=== PATIENT | female | born 1955 | race Two or more races ===

== ENCOUNTER 2024-09-07 11:48 | Inpatient (IN) | payer OTHER, MEDICAID ==
[~2024-09-07] VITALS: Ht 154.9 cm; Wt 85.4 kg
[~2024-09-07 11:48] MED LIST: BUDE1AER4 IN; BUSP5TAB51 PO; DULO60CA41 PO; FLUC150T47 PO; GABA-1308 PO; GLIP10TA21 PO; HYDR-4798 PO; IMMU1INJ IJ; INSUINJ37 SC; LEVO500T91 PO; LORA-622 PO; METF-372 PO; OSEL75CA5 PO
--- NOTE | 2024-09-07 12:10 | ED.PDOC ---
SOB-HPI HPI Comments PMHx: DM, HTN, HLD, COPD, thyroid, RA, pancreatitis PSHx: Denies. Social hx: No alcohol, illicit drug, or tobacco use. Meds: Metformin, Glipizide, Losartan, Vit. D Allergies: NKDA. Vitals T: 98.0F RR: 20 HR: 127 BP: 158/50 O2: 96% on RA HPI: Poor Historian. 69-year-old female presents to the emergency department for evaluation of two day history of shortness of breath and associated midsternal chest discomfort with deep inspiration. Patient has some minimal epigastric discomfort as well. Patient denies any alleviating or precipitating factors. History of COPD. Patient does not use oxygen at home. REVIEW OF SYSTEMS: CONSTITUTIONAL: Denies acute: fever, diaphoresis, chills, generalized weakness. HEAD: Denies acute: headache, photophobia Eyes: Denies acute: Double vision, vision loss, eye pain, eye discharge. EARS: Denies acute: tinnitus, hearing loss, ear discharge, ear pain, THROAT: Denies acute: sore throat, swelling, difficulty swallowing , pain with swallowing, change in voice. NECK: Denies acute: neck pain, neck swelling, stiff neck. HEART: Denies acute : palpitations, LUNGS: Denies acute: wheezing, cough, hemoptysis ABDOMEN: Denies acute: Nausea, Vomiting, diarrhea, melena , hematemesis, hematochezia SKIN: Denies acute: rash, redness, lesions, itchiness. EXTREMITIES: Denies acute: calf pain, numbness, tingling, weakness, denies pain in extremity. Denies acute: Low back pain. Neuro: Denies acute: focal neurological deficit, motor or sensory focal neurological deficit, tremors, seizure like activity, confusion, dizziness, change in mental status, loss of bowel or bladder function, cauda equina like symptoms. : Denies acute: dysuria, hematuria, flank pain, increase in urinary frequency. PSYCH: Denies acute: hallucination, suicidal ideation, homicidal ideation. FEMALE: Denies acute: abnormal vaginal bleeding, foul odor, unusual discharge. PHYSICAL EXAM: General: Moderate acute distress, awake and alert. Head: normocephalic, atraumatic. Neck: supple, trachea is midline, no swelling. Throat: Normal phonation. Eyes:, no erythema, no purulent discharge, no proptosis, no icterus. Heart: regular tachycardic, no significant murmur appreciated. Lungs: mild apparent respiratory distress, No wheezing, no rhonchi, no crackles. No stridors Clear to auscultation bilaterally. Abdomen: Minimal epigastric tender to palpation, non distended, soft, no guarding, no rebound, + bowel sounds. Neuro: Awake, Alert, oriented to name, self, situation, follows commands GCS=15. Speech is normal. Skin: no petechia, no purpura, no cyanosis, non-pale, not jaundice. Lower extremities: --no - Pitting edema no deformity, no focal swelling, no calf TTP. Makes eye contact. moves all four extremities. Face: no apparent facial droop. Ambulating in the ED independently. Time Seen by MD: 11:50 Reviewed notes: Nurses Notes, Medications, Allergies Information Source: Patient Mode of Arrival: Ambulatory Severity: Moderate Timing: Days Duration: Since onset Context: At Rest PE Risk Factors: None History of: COPD Modifying Factors: Nothing Associated Signs and Symptoms: Chest Pain Quality: Sharp Radiation: No Radiation Past Medical History PAST MEDICAL HISTORY: Arthritis, COPD, DM, High Lipids, HTN, Thyroid Past Medical History (Other): Pancreatitis Surgical History: Denies all surgeries STAFF PHYSICAL THERAPIST History: No Pertinent STAFF PHYSICAL THERAPIST History Family History Family History: Reviewed,noncontributory to illness, Unknown Social History Smoker: Non-Smoker Alcohol: Denies ETOH Use Drugs: Denies Drug Use Lives In: Home Was a procedure done? Was a procedure done?: No Differential Dx Differential Diagnosis: COPD, Pneumonia, Other (DDx include ACS, unstable angina, anxiety, PE, pneumothroax, neoplasm, cardiac ischemia, COPD, asthma, C HF, pleural effusion, tobacco abuse, pneumonia, hypoxia, hypercapnia, anemia., infection/sepsis., pulmonary edema. Asthma, Cardiac tamponade, infection.) X-Ray, Labs, Meds, VS Vital Signs Date Time Temp Pulse Resp B/P (MAP) Pulse Ox O2 Delivery O2 Flow Rate FiO2 09/07/24 13:13 123 09/07/24 12:21 98.0 127 20 158/50 (86) 96 09/07/24 12:16 121 Lab Test 09/07/24 13:41 11/25/24 12:48 Range/Units Troponin I High Sensitivity 25 24 </=34 ng/L White Blood Count 12.2 H 4.4-10.8 10^3/uL Red Blood Count 5.53 H 4.0-5.20 10^6/uL Hemoglobin 10.3 L 12.2-16.2 g/dL Hematocrit 34.1 L 36.0-46.0 % Mean Corpuscular Volume 61.7 L 80.0-100.0 fL Mean Corpuscular Hemoglobin 18.7 L 28.0-32.0 pg Mean Corpuscular Hemoglobin Concent 30.2 L 32.0-36.0 g/dL Red Cell Distribution Width 19.2 H 11.8-14.3 % Platelet Count 347 140-450 10^3/uL Mean Platelet Volume 8.5 6.9-10.8 fL Neutrophils (%) (Auto) 82.7 H 37.0-80.0 % Lymphocytes (%) (Auto) 10.2 10.0-50.0 % Monocytes (%) (Auto) 6.1 0.0-12.0 % Eosinophils (%) (Auto) 0.6 0.0-7.0 % Basophils (%) (Auto) 0.4 0.0-2.0 % Neutrophils # (Auto) 10.1 H 1.6-8.6 10 ^3/uL Lymphocytes # (Auto) 1.2 0.4-5.4 10 ^3/uL Monocytes # (Auto) 0.7 0-1.3 10 ^3/uL Eosinophils # (Auto) 0.1 0-0.8 10 ^3/uL Basophils # (Auto) 0 0-0.2 10 ^3/uL Nucleated Red Blood Cells 0.1 % Prothrombin Time 10.9 9.3-11.8 sec Prothrombin Time INR 1.03 0.9-1.15 Activated Partial Thromboplast Time 24.8 24.5-34.5 SEC D-Dimer, Quantitative 0.54 H 0.0-0.49 mg/L FEU Sodium Level 138 136-145 mmol/L Potassium Level 4.4 3.5-5.1 mmol/L Chloride Level 101 98-107 mmol/L Carbon Dioxide Level 25 20-31 mmol/L Anion Gap 12 5-15 Blood Urea Nitrogen 19 9-23 mg/dL Creatinine 1.05 H 0.550-1.02 mg/dL Glomerular Filtration Rate Calc 58 >90 mL/min BUN/Creatinine Ratio 18.1 10.0-20.0 Serum Glucose 350 H 74-106 mg/dL Lactic Acid Level 3.9 *H 0.4-2.0 mmol/L Calcium Level 10.5 H 8.7-10.4 mg/dL Magnesium Level 1.9 1.6-2.6 mg/dL Total Bilirubin 0.5 0.2-1.0 mg/dL Aspartate Amino Transferase (AST) 36 13-40 U/L Alanine Aminotransferase (ALT) 47 H 7-40 U/L Alkaline Phosphatase 135 H 46-116 U/L B-Type Natriuretic Peptide 25.63 0-100 pg/mL Total Protein 7.1 5.7-8.2 g/dL Albumin 4.7 3.2-4.8 g/dL Lipase 25 12-53 U/L [place] [address] Ph: [phone] DIAGNOSTIC IMAGING Diagnostic Imaging Report : [id number] Signed PATIENT: DELORES KLEIN ACCT: [id number] UNIT: [id number] : 1955 LOC: ER ROOM / BED: / AGE / SEX: 69 / F ADM STATUS: REG ER SERVICE ORDERING PHYSICIAN: ALVARO ABEL DO PROCEDURE(s): CXRP - CHEST PORTABLE REASON: CP ORDER NUMBER(s): [id number], ACCESSION NUMBER(s): [id number] AP portable chest REASON FOR EXAM: CP INDICATION: CP FINDINGS: Heart size is normal. Aorta tortuous. There are no infiltrates or effusions. Degenerative changes in the thoracic spine. IMPRESSION: 1. No acute cardiopulmonary pathology. ATED BY: KANE PATHAK MD DICTATED DATE/TIME: 09/07/24 130 SIGNED BY: KANE PATHAK MD SIGNED DATE/TIME: 09/07/24 1301 CC: [address] [address] Ph: [phone] DIAGNOSTIC IMAGING Diagnostic Imaging Report : [id number] Signed PATIENT: DELORES KLEIN ACCT: [id number] UNIT: [id number] : 1955 LOC: OVERFLOW ROOM / BED: 1029-ER / A AGE / SEX: 69 / F ADM STATUS: ADM IN SERVICE 1352 ORDERING PHYSICIAN: ALVARO ABEL DO PROCEDURE(s): CTACH - CT ANGIO CHEST CONTRAST REASON: sob/cp ORDER NUMBER(s): [id number], ACCESSION NUMBER(s): [id number] INDICATION: sob/cp Comparison: None TECHNIQUE: Multidetector CTA of the chest was performed of the chest with 100 cc of intravenous contrast. PULMONARY ANGIOGRAPHY PROTOCOL was utilized using a bolus-tracking technique centered on the main pulmonary artery. Axial, coronal a nd sagittal multiplanar and MIP reformats were performed. Radiation Dose Information: CT Dose: CTDI volume is 5.92 mGy. Dose-length product is 947.73 mGy*cm Omnipaque [address] dose indicators for CT are the volume Computed Tomography (CT) Dose Index (CTDIvol) and the Dose Length Product (DLP), and are measured in units of mGy and mGy-cm, respectively. These indicators are not patient dose, but values generated from the CT scanner acquisition factors. The report includes radiation exposure data for exposures received during this examination. Findings: Pulmonary artery: Normal caliber of the pulmonary artery. No large central or large segmental pulmonary embolism. Lower neck: Normal thyroid. Lungs: No focal consolidation, pulmonary mass, or suspicious pulmonary nodule. Heart/Vascular Structures: Normal heart size. Normal caliber and enhancement of the aorta. Lymph Nodes: No adenopathy Pleura: No pleural effusion or significant pneumothorax. Musculoskeletal: No acute osseous abnormality. Upper abdomen: Limited portions of the upper abdomen are unremarkable. IMPRESSION: 1. No pulmonary embolism. 2. No acute intrathoracic abnormality. ATED BY: KANE MORENO Jr., DO DICTATED DATE/TIME: 09/07/241927 SIGNED BY: KANE MORENO Jr., DO SIGNED DATE/TIME: 09/07/241927 CC: Time of 1ST Reevaluation: 12:35 Reevaluation 1ST: Unchanged Time of 2ND Reevaluation: 21:48 Reevaluation 2ND: Improved Patient Education/Counseling: Diagnosis, Treatment Family Education/Counseling: No Family Present Comments Patient presented with the above HPI.--cardiac----workup was initiated. patient was found with the above mentioned diagnosis. Patient was given: Patient ED course and VS have been stabilized. Patient has been reassessed in the ED and remained in a stable condition. Pertinent incidental findings were discussed with the patient and/or family. Patient/family voices understanding and is agreeable with plan. Patient has been observed in the ED adequate length of time to insure improvement/stability. patient was admitted to the medicine team for further evaluation and treatment of their presentation. All the reports of any imaging studies that were ordered by myself were reviewed by myself. Departure 1 Departure Time of Disposition: 12:54 Impression: Primary Impression: Chest pain of unknown etiology Additional Impressions: Dyspnea Tachycardia Disposition: ADMITTED INPATIENT Admit to: Tele Condition: Guarded Discharged With: Self Critical Care Note Critical Care Time?: Yes (45 min-critical care time only) Heart Score Heart Score: Heart Score Response (Comments) Value History Moderate Suspicious 1 EKG Normal 0 Age >65 2 Risk Factors 1 or 2 risk factors 1 Troponin Normal limit 0 Total 4 I personally scribed for ALVARO ABEL DO ([email or web address]) on 09/07/24 at 12:10. Electronically submitted by Yvonne Quesada ([employer]). I personally scribed for ALVARO ABEL DO (DVFARMI) on 09/07/24 at 12:11. Electronically submitted by Yvonne Quesada ([employer]). I personally scribed for ALVARO ABEL DO (DVFARMI) on 09/07/24 at 12:19. Electronically submitted by Yvonne Quesada ([employer]). I personally scribed for ALVARO ABEL DO ([email or web address]) on 09/07/24 at 13:43. Electronically submitted by Yvonne Quesada ([employer]). I personally scribed for ALVARO ABEL DO ([email or web address]) on 09/07/24 at 20:19. Electronically submitted by Yvonne Quesada ([employer]). ALVARO ABEL DO Sep 07, 2024 12:10
--- NOTE | 2024-09-07 13:03 | DVH ---
AP portable chest REASON FOR EXAM: CP INDICATION: CP FINDINGS: Heart size is normal. Aorta tortuous. There are no infiltrates or effusions. Degenerative changes in the thoracic spine. IMPRESSION: 1. No acute cardiopulmonary pathology.
[2024-09-07 13:25] LABS: Eosinophils # (auto) 0.1 10 ^3/uL (0-0.8); Eosinophils % (auto) 0.6 % (0.0-7.0); Hemoglobin 10.3 g/dL (12.2-16.2); Lymphocytes # (auto) 1.2 10 ^3/uL (0.4-5.4); Neutrophils # (auto) 10.1 10 ^3/uL (1.6-8.6); Nucleated Red Blood Cells % 0.1 %
[2024-09-07 13:26] LABS: Basophils # (auto) 0 10 ^3/uL (0-0.2); Basophils % (auto) 0.4 % (0.0-2.0); Hematocrit 34.1 % (36.0-46.0); Lymphocytes % (auto) 10.2 % (10.0-50.0); Mean Corpuscular Hemoglobin 18.7 pg (28.0-32.0); Mean Corpuscular Hgb Conc. 30.2 g/dL (32.0-36.0); Mean Corpuscular Volume 61.7 fL (80.0-100.0); Monocytes # (auto) 0.7 10 ^3/uL (0-1.3); Monocytes % (auto) 6.1 % (0.0-12.0); Neutrophils % (auto) 82.7 % (37.0-80.0); Platelet Count (auto) 347 10^3/uL (140-450); Red Blood Cells 5.53 10^6/uL (4.0-5.20); Red Cell Distribution Width 19.2 % (11.8-14.3); White Blood Cell 12.2 10^3/uL (4.4-10.8)
[2024-09-07 13:29] LABS: INR 1.03 (0.9-1.15); Partial Thromboplastin Time 24.8 SEC (24.5-34.5); Prothrombin Time 10.9 sec (9.3-11.8)
[2024-09-07 13:31] LABS: Alanine Aminotransferase 47 U/L (7-40); Albumin 4.7 g/dL (3.2-4.8); Alkaline Phosphatase 135 U/L (46-116); Anion Gap 12 (5-15); Aspartate Aminotransferase 36 U/L (13-40); BUN/Creatinine Ratio 18.1 (10.0-20.0); Blood Urea Nitrogen 19 mg/dL (9-23); Calcium 10.5 mg/dL (8.7-10.4); Carbon Dioxide 25 mmol/L (20-31); Chloride 101 mmol/L (98-107); Glucose 350 mg/dL (74-106); Lipase 25 U/L (12-53); Magnesium 1.9 mg/dL (1.6-2.6); Potassium 4.4 mmol/L (3.5-5.1); Sodium 138 mmol/L (136-145)
[2024-09-07 13:32] LABS: Bilirubin, Total 0.5 mg/dL (0.2-1.0); Total Protein 7.1 g/dL (5.7-8.2)
[2024-09-07 13:36] LABS: Lactic Acid w/Reflex 3.9 mmol/L (0.4-2.0)
[2024-09-07] MEDS ORDERED: ONDANSETRON HCL 4 MG/2 ML VIAL IV PRN (14:45)
[2024-09-07] MEDS ORDERED: LORazepam 0.5 MG TAB PO PRN (14:45)
[2024-09-07] MEDS ORDERED: DEXTROSE (50%) 50ML SYRG IV PRN (14:45)
[2024-09-07] MEDS ORDERED: DOCUSATE SOD 100 MG CAP PO PRN (14:45)
[2024-09-07] MEDS ORDERED: ACETAMINOPHEN 325 MG TAB PO PRN (14:45)
[2024-09-07] MEDS ORDERED: MAALOX PLUS or MAALOX 30 ML PO PRN (14:45)
--- NOTE | 2024-09-07 14:52 | DVHHP2 ---
History of Present Illness Reason for Visit: Shortness of stress History of Present Illness 69-year-old morbidly obese patient comes to the ED with complaints of shortness of breath patient has a past medical history of diabetes hypertension hyperlipidemia COPD and thyroid disorder patient on initial evaluation in the ED had a chest x-ray did not show acute signs of fluid overload but possible acute on chronic COPD exacerbation with respiratory distress patient was suggested for admission to the hospital for further evaluation and continued management Cardiovascular: CAD, HTN Pulmonary: COPD Endocrine: Diabetes Review of Systems Constitutional: No: Fever, Chills, Sweats, Weakness, Malaise, Other Eyes: No: Pain, Vision change, Conjunctivae inflammation, Eyelid inflammation, Other, Redness ENT: No: Ear pain, Ear discharge, Nose pain, Nose discharge, Nose congestion, Mouth pain, Mouth swelling, Throat pain, Throat swelling, Other Respiratory: Cough, Shortness of breath, SOB with excertion; No: Dry, Wheezing, Hemoptysis, Pleuritic Pain, Sputum, Wheezing, Other Cardiovascular: Chest Pain, Palpitations; No: Orthopnea, Paroxysmal Noc. Dyspnea, Edema, Lt Headedness, Other Gastrointestinal: No: Nausea, Vomiting, Abdominal Pain, Diarrhea, Constipation, Melena, Hematochezia, Other Genitourinary: No Dysuria, No Frequency, No Incontinence, No Hematuria, No Retention, No Other Musculoskeletal: No: other, neck pain, shoulder pain, arm pain, back pain, hand pain, leg pain, foot pain Skin: No: Rash, Lesions, Jaundice, Bruising, Other Neurological: No: Weakness, Numbness, Incoordination, Change in speech, Conf usion, Seizures, Other Allergies: Coded Allergies: NO KNOWN ALLERGIES (Unverified , 10/12/23) Medications Current Medications Medications Dose Ordered Sig/Erica Route Start Time Stop Time Status Last Admin Dose Admin Diagnostic Test (Pha) 1 strip IQ4HR 09/07/24 16:00 UNV Insulin Human Regular IQ4HR SC 09/07/24 16:00 UNV Dextrose 50 ml UD PRN IV 09/07/24 14:45 UNV Pantoprazole Sodium 40 mg DAILY IV 09/07/24 14:45 UNV Sodium Chloride 1,000 ml @ 60 mls/hr [id number] IV 09/07/24 14:45 UNV Lorazepam 0.5 mg Q6HP PRN PO 09/07/24 14:45 UNV Al Hydrox/Mg Hydrox/Simethicone 30 ml Q6HP PRN PO 09/07/24 14:45 UNV Docusate Sodium 100 mg BIDPRN PRN PO 09/07/24 14:45 UNV Acetaminophen 650 mg Q6HP PRN PO 09/07/24 14:45 UNV Temazepam 15 mg QHSP PRN PO 09/07/24 14:45 UNV Acetaminophen/ Hydrocodone Bitart 1 tab Q4HP PRN PO 09/07/24 14:45 UNV Ondansetron HCl 4 mg Q4HP PRN IV 09/07/24 14:45 UNV Morphine Sulfate 2 mg Q4HPRN PRN IV 09/07/24 14:45 UNV Ceftriaxone Sodium 50 ml @ 100 mls/hr DAILY IV 09/07/24 14:45 UNV Azithromycin 500 mg DAILY PO 09/08/24 10:00 UNV Exam Vital Signs Vital Signs Date Time Temp Pulse Resp B/P (MAP) Pulse Ox O2 Delivery O2 Flow Rate FiO2 09/07/24 13:13 123 09/07/24 12:21 98.0 20 158/50 (86) 96 General Appearance: Alert, Oriented X3, mild distress HEENT: Atraumatic, PERRLA Respiratory: Clear to auscultation, Normal air movement Cardiovascular: Regular rate, Normal S1, Normal S2 Abdominal: Normal bowel sounds, Soft, No tenderness Extremities: No clubbing, No cyanosis Skin: No rashes, No breakdown Neuro: Normal gait, Normal speech Psych/Mental Status: Mood NL Labs/Xrays Labs Test 09/07/24 13:41 09/07/24 12:48 Range/Units Troponin I High Sensitivity 25 </=34 ng/L White Blood Count 12.2 H 4.4-10.8 10^3/uL Red Blood Count 5.53 H 4.0-5.20 10^6/uL Hemoglobin 10.3 L 12.2-16.2 g/dL Hematocrit 34.1 L 36.0-46.0 % Mean Corpuscular Volume 61.7 L 80.0-100.0 fL Mean Corpuscular Hemoglobin 18.7 L 28.0-32.0 pg Mean Corpuscular Hemoglobin Concent 30.2 L 32.0-36.0 g/dL Red Cell Distribution Width 19.2 H 11.8-14.3 % Platelet Count 347 140-450 10^3/uL Mean Platelet Volume 8.5 6.9-10.8 fL Neutrophils (%) (Auto) 82.7 H 37.0-80.0 % Lymphocytes (%) (Auto) 10.2 10.0-50.0 % Monocytes (%) (Auto) 6.1 0.0-12.0 % Eosinophils (%) (Auto) 0.6 0.0-7.0 % Basophils (%) (Auto) 0.4 0.0-2.0 % Neutrophils # (Auto) 10.1 H 1.6-8.6 10 ^3/uL Lymphocytes # (Auto) 1.2 0.4-5.4 10 ^3/uL Monocytes # (Auto) 0.7 0-1.3 10 ^3/uL Eosinophils # (Auto) 0.1 0-0.8 10 ^3/uL Basophils # (Auto) 0 0-0.2 10 ^3/uL Nucleated Red Blood Cells 0.1 % Prothrombin Time 10.9 9.3-11.8 sec Prothrombin Time INR 1.03 0.9-1.15 Activated Partial Thromboplast Time 24.8 24.5-34.5 SEC D-Dimer, Quantitative 0.54 H 0.0-0.49 mg/L FEU Sodium Level 138 136-145 mmol/L Potassium Level 4.4 3.5-5.1 mmol/L Chloride Level 101 98-107 mmol/L Carbon Dioxide Level 25 20-31 mmol/L Anion Gap 12 5-15 Blood Urea Nitrogen 19 9-23 mg/dL Creatinine 1.05 H 0.550-1.02 mg/dL Glomerular Filtration Rate Calc 58 >90 mL/min BUN/Creatinine Ratio 18.1 10.0-20.0 Serum Glucose 350 H 74-106 mg/dL Lactic Acid Level 3.9 *H 0.4-2.0 mmol/L Calcium Level 10.5 H 8.7-10.4 mg/dL Magnesium Level 1.9 1.6-2.6 mg/dL Total Bilirubin 0.5 0.2-1.0 mg/dL Aspartate Amino Transferase (AST) 36 13-40 U/L Alanine Aminotransferase (ALT) 47 H 7-40 U/L Alkaline Phosphatase 135 H 46-116 U/L B-Type Natriuretic Peptide 25.63 0-100 pg/mL Total Protein 7.1 5.7-8.2 g/dL Albumin 4.7 3.2-4.8 g/dL Lipase 25 12-53 U/L Assessment/Plan Assessment/Plan Admit to [facility] Shortness of breath acute on chronic hypoxic respiratory distress COPD exacerbation Treat as pneumonia IV antibiotics P.r.n. breathing treatments Ceftriaxone Azithromycin Monitor for signs of acute hypoxia and continue with supplemental oxygen History of hypertension Continue with home medications and management of blood pressure p.r.n. medications for blood pressure greater than 160 History of hyperlipidemia continue with statins History of thyroid disorder patient takes levothyroxine dose unconfirmed Continue with home medication dosage once confirmed Plan discussed with: Patient My Orders Orders - SUJATA ARTIS MD Procedure Category Date Status Time Glucose Blood PHA 09/07/24 Logged (Accu-Chek Comfort 16:00 Insulin R (Human) PHA 09/07/24 Logged (Insulin R) 16:00 Dextrose 50% Syringe PHA 09/07/24 Logged 14:45 Insulin R (Human) PHA 09/07/24 Logged (Insulin R) 14:45 Pantoprazole PHA 09/07/24 Logged (Protonix) 14:45 Admit ADMIT 09/07/24 Transmitted 14:38 Code Status CODE 09/07/24 Transmitted 14:38 Vital Signs [facility] 09/07/24 In Process 14:38 Review Orders With [facility] 09/07/24 In Process Adm. 14:38 Consistent DIET 09/07/24 Transmitted Carb(Ccho)Diabetes Dinner Sodium Chloride 0.9% PHA 09/07/24 Logged 14:45 Lorazepam Tablet PHA 09/07/24 Logged (Ativan Tablet) 14:45 Alum & Mag PHA 09/07/24 Logged Hydrox-Simethicone 14:45 Docusate Sodium PHA 09/07/24 Logged Capsule (Colace 14:45 Acetaminophen Tablet PHA 09/07/24 Logged (Tylenol Tablet) 14:45 Temazepam (Restoril) PHA 09/07/24 Logged 14:45 Notify Of Changes [facility] 09/07/24 In Process From Base 14:38 Advance Directive [facility] 09/07/24 In Process 14:38 Basic Metabolic Panel LAB 11/26/24 Verified 04:00 Complete Blood Count LAB 09/08/24 Verified 04:00 Patient Condition ORDERS 09/07/24 Transmitted 14:38 Allergies YAA 09/07/24 In Process 14:38 Hydrocodone-Acet PHA 09/07/24 Logged 5/325mg Tab ([place] 14:45 Ondansetron Hcl PHA 09/07/24 Logged (Zofran) 14:45 Morphine Sulfate PHA 09/07/24 Logged Injection 14:45 Notify Md Of Changes YAA 09/07/24 In Process From Base 14:38 Oxygen By Nasal RT 09/07/24 Transmitted Cannula 14:38 Ceftriaxone 1gm/50ml PHA 09/07/24 Logged D5w (Rocephin) 14:45 Azithromycin Tablet PHA 09/08/24 Logged (Zithromax Tablet) 10:00 Problem List: (1) Chest pain of unknown etiology (2) Tachycardia (3) Fever Date of Service: Sep 07, 2024 Billing Provider: SUJATA ARTIS MD Common Visit Codes: 94862-[id number] INP/OBS CARE (HIGH) SUJATA ARTIS MD Sep 07, 2024 14:52
[2024-09-07] MEDS: ACCU-CHEK COMFORT CURVE STRIP VI SCH (17:25)
[2024-09-07] MEDS: InsuLIN REG 1unit/0.01ml Soln (100units/ml) IV ONE (17:25)
[2024-09-07] MEDS: SODIUM CHLORIDE 0.9% 1,000 ML IV SCH (17:26)
[2024-09-07] MEDS: PANTOPRAZOLE 40 MG/10 ML VIAL INJ IV SCH (17:26)
[2024-09-07] MEDS: cefTRIAXone 1GM/50ML D5W 50 ML IV SCH (17:30)
[2024-09-07] MEDS: InsuLIN REG 1unit/0.01ml Soln (100units/ml) SC SCH (17:31)
[2024-09-07] MEDS: IOHEXOL 350 MG/ML 100ML IJ ONE (18:42)
--- NOTE | 2024-09-07 19:31 | DVH ---
INDICATION: sob/cp Comparison: None TECHNIQUE: Multidetector CTA of the chest was performed of the chest with 100 cc of intravenous contr ast. PULMONARY ANGIOGRAPHY PROTOCOL was utilized using a bolus-tracking technique centered on the elizabeth n pulmonary artery. Axial, coronal and sagittal multiplanar and MIP reformats were performed. Radiation Dose Information: CT Dose: CTDI volume is 5.92 mGy. Dose-length product is 947.73 mGy*cm Omnipaque [address] dose [address] are the volume Computed Tomography (CT) Dose Index (CTDIvol) and the Dose Length Product (DLP), and are measured in units of mGy and mGy-cm, respectively. These indicators are not patient dose, but values generated from the CT scanner acquisition factors. The report includes radiation exposure data for exposures received during this examination. Findings: Pulmonary artery: Normal caliber of the pulmonary artery. No large central or large segmental pulmo nary embolism. Lower neck: Normal thyroid. Lungs: No focal consolidation, pulmonary mass, or suspicious pulmonary nodule. Heart/Vascular Structures: Normal heart size. Normal caliber and enhancement of the aorta. Lymph Nodes: No adenopathy Pleura: No pleural effusion or significant pneumothorax. Musculoskeletal: No acute osseous abnormality. Upper abdomen: Limited portions of the upper abdomen are unremarkable. IMPRESSION: 1. No pulmonary embolism. 2. No acute intrathoracic abnormality.
[2024-09-07 21:39] VITALS: PULSE 109; RESP 17; O2SAT 100
[2024-09-07 23:26] VITALS: BP 129/53; PULSE 111; RESP 20; TEMP 98.6; O2SAT 97
[2024-09-08] VITALS (9 sets, daily range): BP systolic 125–140; BP diastolic 57–81; PULSE 99–111; RESP 16–20; TEMP 97.1–98.7; O2SAT 93–100
[2024-09-08] MEDS: TEMAZEPAM 15 MG CAP PO PRN (00:17)
[2024-09-08] MEDS ORDERED: INSU100I54 SC (01:31)
[2024-09-08] MEDS ORDERED: LEVO50TA7 PO (01:31)
[2024-09-08] MEDS ORDERED: LOSA-535 PO (01:31)
[2024-09-08] MEDS ORDERED: FAMO-12 PO (01:32)
[2024-09-08] MEDS ORDERED: DULO20CA PO (01:32)
[2024-09-08] MEDS ORDERED: EMPA1TAB PO (01:32)
[2024-09-08] MEDS ORDERED: METF-370 PO (01:32)
[2024-09-08] MEDS ORDERED: ATOR10TA52 PO (01:32)
[2024-09-08] MEDS ORDERED: HYDR-4798 PO (01:32)
[2024-09-08] MEDS ORDERED: CHOL20007 OR (01:32)
[2024-09-08] MEDS ORDERED: BACL10TA PO (01:32)
[2024-09-08 06:23] LABS: Chloride 105 mmol/L (98-107); Potassium 3.7 mmol/L (3.5-5.1); Sodium 140 mmol/L (136-145)
[2024-09-08 06:24] LABS: Anion Gap 9 (5-15); Carbon Dioxide 26 mmol/L (20-31)
[2024-09-08 06:29] LABS: BUN/Creatinine Ratio 16.7 (10.0-20.0); Blood Urea Nitrogen 15 mg/dL (9-23); Glucose 130 mg/dL (74-106)
[2024-09-08 06:56] LABS: Hematocrit 32.9 % (36.0-46.0); Mean Corpuscular Hemoglobin 18.6 pg (28.0-32.0); Mean Corpuscular Hgb Conc. 30.4 g/dL (32.0-36.0); Mean Corpuscular Volume 61.2 fL (80.0-100.0); Platelet Count (auto) 299 10^3/uL (140-450); Red Blood Cells 5.38 10^6/uL (4.0-5.20); Red Cell Distribution Width 19.1 % (11.8-14.3); White Blood Cell 7.8 10^3/uL (4.4-10.8)
--- NOTE | 2024-09-08 07:20 | ECG ---
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
--- NOTE | 2024-09-08 07:20 | ECG ---
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
[2024-09-08 08:12] LABS: Platelet Estimate Adequate
[2024-09-08 08:14] LABS: Hypochromia Moderate
[2024-09-08 08:17] LABS: Ovalocytes FEW
[2024-09-08 08:18] LABS: Basophils % (auto) 0.6 % (0.0-2.0); Eosinophils % (auto) 0.4 % (0.0-7.0); Monocytes % (auto) 10.1 % (0.0-12.0); Neutrophils % (auto) 64.9 % (37.0-80.0)
[2024-09-08] MEDS: AZITHROMYCIN 250 MG TAB PO SCH (09:43)
[2024-09-08] MEDS: HYDROcodone-ACET 5/325MG TAB PO PRN (10:41)
--- NOTE | 2024-09-08 10:57 | ECG ---
[facility] Test Date: 2024-09-07 Test Time: 15:28:03 Pat Name: DELORES KLEIN Department: ER Room: 0292 A Gender: F Account Planner: KAREEM : 1955 Requested By: ALVARO ABEL Order Number: [id number] Reading MD: Donal Chairez Measurements Intervals [place] Rate: 123 P: 52 [place]: 132 QRS: 59 QRSD: 81 T: -20 QT: 318 QTc: 455 Interpretive Statements Sinus tachycardia Ventricular premature complex Aberrant complex Nonspecific repol abnormality, inferior leads Electronically Signed On 09-09-2024 14:13:24 PST by Donal Chairez Please click the below link to view image of tracing.
[2024-09-08] MEDS ORDERED: IPRATROPIUM BROM 0.5 MG/2.5ML INH SOL NEB PRN (15:45)
[2024-09-08] MEDS ORDERED: DOCUSATE SOD 100 MG CAP PO PRN (15:45)
[2024-09-08] MEDS ORDERED: ALBUTEROL SULF 2.5 MG/0.5ML(0.5%) NEB SOLN NEB PRN (15:45)
--- NOTE | 2024-09-08 16:02 | DVHPN2 ---
Subjective Patient reports that her shortness of breath has improved. She does report having epigastric and right upper quadrant pain with radiation to her upper back. Reviewed: Care Plan, H&P, Labs, Medications Changes from previous H/P or p: No Changes General: Per HPI Eyes: No Pain, No Vision change, No Conjunctivae inflammation, No Eyelid inflammation, No Other, No Redness ENT: No Ear pain, No Ear discharge, No Nose pain, No Nose discharge, No Nose congestion, No Mouth pain, No Mouth swelling, No Throat pain, No Throat swelling, No Other Cardiovascular: Chest Pain, Palpitations; No Orthopnea, No Paroxysmal Noc. Dyspnea, No Edema, No Lt Headedness, No Other Respiratory: Cough; No Dry; Shortness of breath, SOB with excertion; No Wheezing, No Hemoptysis, No Pleuritic Pain, No Sputum, No Other Gastrointestinal: No Nausea, No Vomiting, No Abdominal Pain, No Diarrhea, No Constipation, No Melena, No Hematochezia, No Other Genitourinary: No Dysuria, No Frequency, No Incontinence, No Hematuria, No Retention, No Other Musculoskeletal: No other, No neck pain, No shoulder pain, No arm pain, No back pain, No hand pain, No leg pain, No foot pain Skin: No Rash, No Lesions, No Jaundice, No Bruising, No Other Objective Vitals Vital Signs Date Time Temp Pulse Resp B/P (MAP) Pulse Ox O2 Delivery O2 Flow Rate FiO2 09/08/24 13:00 97.9 102 18 126/62 (83) 93 97.9 09/08/24 08:20 Room Air* 0 21 Intake/Output Intake and Output 09/08/24 07:00 Intake Total 400 ml Balance 400 ml Intake Oral 400 ml # Voids 3 General Appearance: Alert, Oriented X3, Cooperative HEENT: Atraumatic, PERRLA Lungs: Clear to auscultation, Normal air movement Cardiovascular: Normal S1, Normal S2 Genitourinary: No Apparent Abnormalities Musculoskeletal: Normal sensory function, Normal motor function Neuro: Normal speech, Cranial nerves 3-12 NL Skin: Dry, Intact Psych/Mental Status: Mental status NL, Mood NL Medications Current Medications Medications Dose Ordered Sig/Erica Route Start Time Stop Time Status Last Admin Dose Admin Diagnostic Test (Pha) 1 strip IQ4HR 09/07/24 16:00 09/08/24 12:29 1 STRIP Insulin Human Regular IQ4HR SC 09/07/24 16:00 09/08/24 12:33 12 UNITS Dextrose 50 ml UD PRN IV 09/07/24 14:45 Pantoprazole Sodium 40 mg DAILY IV 09/07/24 14:45 09/08/24 09:43 40 MG Lorazepam 0.5 mg Q6HP PRN PO 09/07/24 14:45 Al Hydrox/Mg Hydrox/Simethicone 30 ml Q6HP PRN PO 09/07/24 14:45 Docusate Sodium 100 mg BIDPRN PRN PO 09/07/24 14:45 Acetaminophen 650 mg Q6HP PRN PO 09/07/24 14:45 Temazepam 15 mg QHSP PRN PO 09/07/24 14:45 09/08/24 00:17 15 MG Acetaminophen/ Hydrocodone Bitart 1 tab Q4HP PRN PO 09/07/24 14:45 09/08/24 10:41 1 TAB Ondansetron HCl 4 mg Q4HP PRN IV 09/07/24 14:45 Morphine Sulfate 2 mg Q4HPRN PRN IV 09/07/24 14:45 Ceftriaxone Sodium 50 ml @ 100 mls/hr DAILY IV 09/07/24 14:45 09/08/24 09:43 100 MLS/HR Azithromycin 500 mg DAILY PO 09/08/24 10:00 09/08/24 09:43 500 MG Ondansetron HCl 4 mg Q6HP PRN IV 09/08/24 15:45 UNV Docusate Sodium 100 mg BID PRN PO 09/08/24 15:45 UNV Albuterol 2.5 mg Q4HPRN PRN NEB 09/08/24 15:45 UNV Ipratropium [place] 0.5 mg Q4HPRN PRN NEB 09/08/24 15:45 UNV Empaglifozin 10 mg DAILY PO 09/09/24 10:00 UNV Patient Own Medication 1 cap DAILY PO 09/09/24 10:00 UNV Insulin Glargine 30 units HS SC 09/08/24 22:00 UNV Laboratory Results Laboratory Tests 09/08/24 05:10 Chemistry Test 09/08/24 05:10 Calcium Level 10.0 mg/dL (8.7-10.4) Labs and/or images reviewed: Labs reviewed by me, Image(s) reviewed by me Assessment/Plan Assessment/Plan Impression: -acute hypoxic respiratory failure, resolved -COPD with probable exacerbation, resolved -rule out pulmonary embolism, ruled out -rule out cholelithiasis/cholecystitis -pancreatitis ruled out -obesity -diabetes mellitus Plan: -gallbladder ultrasound -lipase negative, discussed with the patient -CT angiogram of the chest, ruled out PE, cardiopulmonary pulmonology ruled out -weaned off of O2 -regular insulin sliding scale -restart Lantus -continue current antibiotic therapy with Rocephin and azithromycin -repeat labs in a.m. Total time spent with patient discussing and formulating plan of care: 35 minutes. This medical document was created using an electronic medical record system with [employer] dictation system. Although this document has been carefully reviewed, there may still be some phonetic and typographical errors. These areas are purely typographical due to imperfections of the software programs, and do not reflect any compromise in the patient's medical care. Plan discussed with: Patient, Other (RN) My Orders Orders - MARLEN THAYER NP Procedure Category Date Status Time May Shower [facility] 09/08/24 In Process 15:16 Gallbladder US 09/08/24 Logged 15:45 Ondansetron Hcl PHA 09/08/24 Logged (Zofran) 15:45 Docusate Sodium PHA 09/08/24 Logged Capsule (Colace 15:45 Albuterol Medneb PHA 09/08/24 Logged (Ventolin Medneb) 15:45 Ipratropium Medneb PHA 09/08/24 Logged (Atrovent Medneb) 15:45 Comprehensive LAB 09/09/24 Verified Metabolic Panel 04:00 Complete Blood Count LAB 09/09/24 Verified 04:00 Empagliflozin PHA 09/09/24 Logged (Jardiance) 10:00 (Nf) Duloxetine Hcl PHA 09/09/24 Logged (Cymbalta) 10:00 Insulin Lantus PHA 09/08/24 Transmitted (Glargine) (Lantus) 22:00 Date of Service: Sep 08, 2024 Billing Provider: MARLEN THAYER NP Common Visit Codes: [id number] INP/OBS CARE(HIGH) MARLEN THAYER NP Sep 08, 2024 16:02
--- NOTE | 2024-09-08 19:57 | DVH ---
Procedure: US GALLBLADDER Study Date and Requested Time: 09/08/2024 07:15 PM History: Upper quadrant pain, rule out cholelithiasis Comparison: US RIGHT LOWER QUAD on DOS: 10/14/23, US LIVER on DOS: 10/12/23 Technique: Multiple high resolution jean-scale images obtained of the right upper quadrant of the abd omen with color Doppler for evaluation of blood flow and vascularity as indicated. Findings: Liver measures 17.1 cm in length, with heterogeneous echotexture and normal contours. No evidence of focal hepatic lesions, intrahepatic or extrahepatic ductal dilatation. Common bile duct measures 0.6 in diameter. Gallbladder unremarkable with no evidence of abnormal wall thickening, gallstones, biliary sludge, or pericholecystic fluid. Negative sonographic Grace's sign. Pancreas is obscured by bowel gas. Right kidney measures 11 cm in length, with normal contours, echotexture, and cortical thickness. No evidence of hydronephrosis, calculi, cystic or solid renal lesions. Partially visualized inferior vena cava unremarkable. Impression: Mild hepatomegaly with hepatic steatosis. Pancreas is partially obscured by bowel gas.
[2024-09-08] MEDS: MORPHINE SULFATE INJ 2 MG/ml SYRG IV PRN (20:46)
[2024-09-08] MEDS: INSULIN LANTUS (GLARGINE) 1 /0.01ml (100units/ml) SC SCH (21:43)
[2024-09-09 01:00] VITALS: BP 153/59; PULSE 103; RESP 20; TEMP 98.5; O2SAT 97
[2024-09-09 05:00] VITALS: BP 148/66; PULSE 95; RESP 18; TEMP 98; O2SAT 99
[2024-09-09 06:06] LABS: Alanine Aminotransferase 59 U/L (7-40); Albumin 4.3 g/dL (3.2-4.8); Alkaline Phosphatase 113 U/L (46-116); Anion Gap 7 (5-15); Aspartate Aminotransferase 58 U/L (13-40); BUN/Creatinine Ratio 16.5 (10.0-20.0); Blood Urea Nitrogen 16 mg/dL (9-23); Carbon Dioxide 28 mmol/L (20-31); Chloride 104 mmol/L (98-107); Glucose 185 mg/dL (74-106); Potassium 4.5 mmol/L (3.5-5.1); Sodium 139 mmol/L (136-145)
[2024-09-09 06:07] LABS: Bilirubin, Total 0.3 mg/dL (0.2-1.0); Total Protein 6.9 g/dL (5.7-8.2)
[2024-09-09 06:12] LABS: Basophils # (auto) 0 10 ^3/uL (0-0.2); Basophils % (auto) 0.6 % (0.0-2.0); Eosinophils # (auto) 0.1 10 ^3/uL (0-0.8); Eosinophils % (auto) 1.2 % (0.0-7.0); Hemoglobin 9.9 g/dL (12.2-16.2); Monocytes # (auto) 0.8 10 ^3/uL (0-1.3); Neutrophils # (auto) 4.6 10 ^3/uL (1.6-8.6)
[2024-09-09 06:16] LABS: Hematocrit 32.2 % (36.0-46.0); Lymphocytes # (auto) 2.4 10 ^3/uL (0.4-5.4); Lymphocytes % (auto) 29.7 % (10.0-50.0); Mean Corpuscular Hgb Conc. 30.8 g/dL (32.0-36.0); Mean Corpuscular Volume 61.6 fL (80.0-100.0); Monocytes % (auto) 10.5 % (0.0-12.0); Platelet Count (auto) 284 10^3/uL (140-450); Red Blood Cells 5.23 10^6/uL (4.0-5.20); Red Cell Distribution Width 19.4 % (11.8-14.3); White Blood Cell 7.9 10^3/uL (4.4-10.8)
[2024-09-09] MEDS: EMPAGLIFLOZIN 10 MG TAB PO SCH (07:52)
[2024-09-09] MEDS: DULoxetine HCL 30 MG CAP PO SCH (07:52)
[2024-09-09] MEDS: ONDANSETRON HCL 4 MG/2 ML VIAL IV PRN (08:06)
[2024-09-09 09:00] VITALS: BP 137/70; PULSE 88; RESP 16; TEMP 97.9; O2SAT 99
[2024-09-09] MEDS ORDERED: PATIENTS OWN MEDICATION (Duloxetine Hcl (Cymbalta) 1 CAP) PO SCH (10:00)
[2024-09-09 13:00] VITALS: BP_SYST 125; BP_SYST 169; BP_SYST 184; BP_DIAS 52; BP_DIAS 71; BP_DIAS 76; PULSE 77; PULSE 80; PULSE 98; RESP 16; RESP 20; TEMP 98.4; O2SAT 100; O2SAT 96; O2SAT 97
[2024-09-09] MEDS ORDERED: LEVO500T91 PO (16:03)
--- NOTE | 2024-09-09 17:06 | DVHDS2 ---
Discharge Summary Date of Admission Sep 07, 2024 at 14:38 Date of Discharge: Sep 09, 2024 Admitting Diagnosis Acute respiratory failure secondary to COPD exacerbation Labs/Diagnostic Data: Laboratory Results Test 09/09/24 11:22 09/09/24 04:53 09/08/24 05:10 09/07/24 16:01 POC Glucose 290 mg/dl (70-106) White Blood Count 7.9 10^3/uL (4.4-10.8) Red Blood Count 5.23 10^6/uL (4.0-5.20) Hemoglobin 9.9 g/dL (12.2-16.2) Hematocrit 32.2 % (36.0-46.0) Mean Corpuscular Volume 61.6 fL (80.0-100.0) Mean Corpuscular Hemoglobin 19.0 pg (28.0-32.0) Mean Corpuscular Hemoglobin Concent 30.8 g/dL (32.0-36.0) Red Cell Distribution Width 19.4 % (11.8-14.3) Platelet Count 284 10^3/uL (140-450) Mean Platelet Volume 8.7 fL (6.9-10.8) Neutrophils (%) (Auto) 58.0 % (37.0-80.0) Lymphocytes (%) (Auto) 29.7 % (10.0-50.0) Monocytes (%) (Auto) 10.5 % (0.0-12.0) Eosinophils (%) (Auto) 1.2 % (0.0-7.0) Basophils (%) (Auto) 0.6 % (0.0-2.0) Neutrophils # (Auto) 4.6 10 ^3/uL (1.6-8.6) Lymphocytes # (Auto) 2.4 10 ^3/uL (0.4-5.4) Monocytes # (Auto) 0.8 10 ^3/uL (0-1.3) Eosinophils # (Auto) 0.1 10 ^3/uL (0-0.8) Basophils # (Auto) 0 10 ^3/uL (0-0.2) Nucleated Red Blood Cells 0.0 % Sodium Level 139 mmol/L (136-145) Potassium Level 4.5 mmol/L (3.5-5.1) Chloride Level 104 mmol/L (98-107) Carbon Dioxide Level 28 mmol/L (20-31) Anion Gap 7 (5-15) Blood Urea Nitrogen 16 mg/dL (9-23) Creatinine 0.97 mg/dL (0.550-1.02) Glomerular Filtration Rate Calc 64 mL/min (>90) BUN/Creatinine Ratio 16.5 (10.0-20.0) Serum Glucose 185 mg/dL (74-106) Calcium Level 10.0 mg/dL (8.7-10.4) Total Bilirubin 0.3 mg/dL (0.2-1.0) Aspartate Amino Transferase (AST) 58 U/L (13-40) Alanine Aminotransferase (ALT) 59 U/L (7-40) Alkaline Phosphatase 113 U/L (46-116) Total Protein 6.9 g/dL (5.7-8.2) Albumin 4.3 g/dL (3.2-4.8) Platelet Estimate Adequate Hypochromasia (manual) Moderate Microcytosis Slight Ovalocytes Few Troponin I High Sensitivity 24 ng/L (</=34) Test 09/07/24 15:56 09/07/24 12:48 Lactic Acid Level 3.4 mmol/L (0.4-2.0) Prothrombin Time 10.9 sec (9.3-11.8) Prothrombin Time INR 1.03 (0.9-1.15) Activated Partial Thromboplast Time 24.8 SEC (24.5-34.5) D-Dimer, Quantitative 0.54 mg/L FEU (0.0-0.49) Magnesium Level 1.9 mg/dL (1.6-2.6) B-Type Natriuretic Peptide 25.63 pg/mL (0-100) Lipase 25 U/L (12-53) Other Laboratory Tests 09/09/24 04:53 Brief Hx & Hospital Course: History of Present Illness 69-year-old morbidly obese patient comes to the ED with complaints of shortness of breath patient has a past medical history of diabetes hypertension hyperlipidemia COPD and thyroid disorder patient on initial evaluation in the ED had a chest x-ray did not show acute signs of fluid overload but possible acute on chronic COPD exacerbation with respiratory distress patient was suggested for admission to the hospital for further evaluation and continued management. Course of hospitalization: Patient was started on azithromycin and Rocephin as well as being treated with bronchodilators. Patient was respiratory status has improved and has been weaned off of O2 supplementation. Patient was continued on regular insulin sliding scale. Patient then followed up with new complaint of epigastric and right upper quadrant pain. Gallbladder ultrasound was performed which was negative for any acute findings. Lipase was also found to be negative. The patient states that her abdominal pain has subsided today. She is agreeable to be discharged home. Given her elevated white blood cell count, she will be continued on antibiotic therapy with Levaquin 500 mg p.o. daily for the next five days. She was instructed to follow up with her PCP and obtain referral to package designer has per her request. If she was able to follow up with her PCP in a timely manner, she will follow up with the discharge Clinic in one week. All questions answered. Physical exam General: Alert and Oriented x3. No acute distress. Well-nourished. Eyes: EOMI. Anicteric. HENT: Moist mucous membranes. Lungs: Clear to auscultation bilaterally. No accessory muscle use. Cardiovascular: Regular rate and rhythm. No murmur. No JVD. Abdomen: Soft, non-tender and non-distended. No palpable masses. Extremities: No edema. Non-tender. Skin: No rashes or lesions. Warm. Neurologic: No focal neurological deficits. CN II-XII grossly intact, but not individually tested. Psychiatric: Cooperative. Appropriate mood and affect. Total time spent with patient discussing and formulating plan of care: 35 minutes. This medical document was created using an electronic medical record system with [employer] dictation system. Although this document has been carefully reviewed, there may still be some phonetic and typographical errors. These areas are purely typographical due to imperfections of the software programs, and do not reflect any compromise in the patient's medical care. Condition at Discharge: Fair Final Diagnosis/Problems List Acute respiratory failure secondary to COPD exacerbation Secondary Diagnosis: -acute hypoxic respiratory failure, resolved -COPD with probable exacerbation, resolved -rule out pulmonary embolism, ruled out -rule out cholelithiasis/cholecystitis -pancreatitis ruled out -obesity -diabetes mellitus Discharge Disposition: Home Discharge Instruct/Medications Diet: Consistent carbohydrate Activity: No Restrictions, As Tolerated Follow Up/Referral: Discharge Clinic in one week PCP in 1-2 weeks Medications: Levaquin 500 mg p.o. daily x5 days Continue all previous home medications 36 Discharge Statement: "Patient was advised to return to the ER or call 911 if any headaches, dizziness, shortness of breath, chest pain, abdominal pain, bleeding, fevers, or worsening of medical condition. Patient was counseled about treatment plan, medications, possible side effects, patientverbalized understanding. All questions were answered to the best of my ability. This discharge took greater then 30 minutes in planning, reviewing documentation, counseling the patient, and discussing with other team members." ASSESSMENT ASSESSMENT Assessment Acute respiratory failure secondary to COPD exacerbation Date of Service: Sep 09, 2024 Billing Provider: MARLEN THAYER NP Common Visit Codes: [id number] DISCH DAY >30min MARLEN THAYER NP Sep 09, 2024 17:06
[2024-09-10 09:42] LABS: Hepatitis B Surface Antigen Negative (Negative); Hepatitis C Antibody Negative (Negative)
== END 2024-09-09 16:40 | disposition home or self-care (01) | DRG 189 ==
LOC: ER 11:48 → OVERFLOW 14:38 → WEST WING 23:50
PROVIDERS: ADMIT Hospitalist; ATTEND Nurse Practitioner Acute Care
DX: J96.21 Acute and chronic respiratory failure with hypoxia (principal); J44.1 Chronic obstructive pulmonary disease with (acute) exacerbation; J44.0 Chronic obstructive pulmonary disease with (acute) lower respiratory infection; K80.10 Calculus of gallbladder with chronic cholecystitis without obstruction; R65.10 Systemic inflammatory response syndrome (SIRS) of non-infectious origin without acute organ dysfunction; I10 Essential (primary) hypertension; E11.9 Type 2 diabetes mellitus without complications; E78.5 Hyperlipidemia, unspecified; I25.10 Atherosclerotic heart disease of native coronary artery without angina pectoris; E66.9 Obesity, unspecified; Z68.35 Body mass index [BMI] 35.0-35.9, adult
CPT/HCPCS: 36415; 71045; 71275; 76705; 80048; 80053; 82962; 83605; 83690; 83735; 83880; 84484; 85025; 85379; 85610; 85730; 86803; 87340; 93005; 99291; G0378; J1815; J2405; J2470